=== PATIENT | male | born 1955 | race American Indian/Alaskan Native ===

== ENCOUNTER 2017-08-13 10:04 | Outpatient (CLI) | payer MEDICARE ==
--- NOTE | 2017-08-17 18:58 | Magnetic Resonance Report ---
MR scan of the cranium was performed without contrast. Pulse sequences included: 1. T1 weighted sagittal and axial images without contrast 2. T2 weighted axial and coronal images 3. FLAIR axial images 4. Diffusion-weighted axial images 5. Apparent diffusion coefficient images Views of the posterior fossa showed a normal craniocervical junction. Cerebellar pontine angles were normal with normal seventh-eighth nerve complexes. Brainstem and cerebellum were normal. The ventricular system showed moderate dilatation but no distortion. Images of the hemispheres showed large confluent areas of increased signal in the periventricular white matter with other areas as the juarez white junction. Moderate frontal and temporal atrophy were present. Sinuses, flow voids in the iqu[place]mi[place] of Das, orbits, pituitary and basal ganglia were normal. Impression: Abnormal MR scan of the cranium without contrast. 1. extensive white matter disease 2. moderate atrophy frontal and biparietal 3. moderate ventricular enlargement this scan has not changed appreciably since the previous scan of 06/11/2016
== END 2017-08-13 10:05 | disposition home or self-care (01) ==
LOC: MRI 10:04
PROVIDERS: ATTEND Specialist
DX: G35 Multiple sclerosis (principal); G31.89 Other specified degenerative diseases of nervous system; R90.82 White matter disease, unspecified
CPT/HCPCS: 70551